=== PATIENT | male | born 1955 | race Caucasian/White ===

== ENCOUNTER 2016-09-08 09:59 | Emergency (ER) | payer BC ==
[~2016-09-08] VITALS: Ht 172.7 cm; Wt 79.0 kg
[2016-09-08 10:05] VITALS: Ht 172.7 cm; Wt 79.0 kg
[2016-09-08] MEDS ORDERED: ONDANSETRON 4 MG INJ IV STA (10:41)
[2016-09-08] MEDS ORDERED: HYDROmorphONE 1 MG/ML SYG IV STA (10:41)
[2016-09-08] MEDS ORDERED: SOD CHLORIDE 0.9% 1,000 ML IV STA (10:41)
[2016-09-08 11:03] LABS: ADD SCAN DIFF NO
[2016-09-08 11:12] LABS: BASOPHILS % 0.3 % (0.0-2.0); EOSINOPHILS # 0.1 10^3/ul (0.0-0.5); EOSINOPHILS % 1.3 % (0.0-7.0); HEMATOCRIT 42.8 % (42.0-52.0); HEMOGLOBIN 14.7 g/dl (14.0-18.0); LYMPHOCYTES # 1.5 10^3/ul (0.8-2.9); LYMPHOCYTES % 16.5 % (15.0-51.0); MEAN CORPUSCULAR HGB CONC 34.3 g/dl (32.0-37.0); MEAN CORPUSCULAR VOLUME 84.4 fl (82.0-101.0); MEAN PLATELET VOLUME 10.1 fl (7.4-10.4); MONOCYTE # 0.5 10^3/ul (0.3-0.9); MONOCYTES % 6.1 % (0.0-11.0); NEUTROPHIL # 6.7 10^3/ul (1.6-7.5); NEUTROPHILS % 75.4 % (39.0-77.0); PLATELET COUNT 250 10^3/UL (140-415); RED BLOOD COUNT 5.07 10^6/ul (4.70-6.10); RED CELL DISTRIBUTION WIDTH 13.2 % (11.5-14.5); WHITE BLOOD COUNT 8.9 10^3/ul (4.8-10.8)
[2016-09-08 11:13] LABS: ADD UMIC YES; UR ASCORBIC ACID NEGATIVE (NEGATIVE); UR BILIRUBIN (Dip) NEGATIVE (NEGATIVE); UR BLOOD (Dip) 3+ mg/dL (NEGATIVE); UR CLARITY SLIGHTLY CLOUDY (CLEAR); UR COLOR YELLOW (YELLOW); UR GLUCOSE (Dip) 3+ mg/dL (NEGATIVE); UR KETONES (Dip) NEGATIVE (NEGATIVE); UR LEUKOCYTE ESTERASE (Dip) NEGATIVE Leu/ul (NEGATIVE); UR MUCUS MODERATE /HPF (NONE SEEN); UR NITRITE (Dip) NEGATIVE (NEGATIVE); UR RBC 70 /HPF (0-5); UR SPECIFIC GRAVITY (Dip) 1.032 (1.003-1.030); UR TOTAL PROTEIN (Dip) NEGATIVE (NEGATIVE); UR UROBILINOGEN (Dip) NEGATIVE (NEGATIVE)
--- NOTE | 2016-09-08 11:29 | RADRPT ---
PROCEDURE: CT Abdomen and Pelvis without contrast. CLINICAL INDICATION: Abdominal pain TECHNIQUE: CT scan of the abdomen and pelvis without contrast was performed on a multidetector hig h-resolution CT scanner. The patient was scanned without intravenous contrast. Coronal and sagittal reformatted images were obtained from the axial source images. Images were reviewed on a high-resol [employer] PACS workstation. The total exam CTDI equals 11.93 mGy and the total exam DLP equals 728.33 mG y-cm. One or more of the following dose reduction techniques were used: Automated exposure control. Adjustment of the mA and/or kV according to patient size. Use of iterative reconstruction technique. COMPARISON: None FINDINGS: CT abdomen: The lung bases are remarkable for bibasilar atelectasis. The heart size is normal, without pericard ial thickening or effusion. There is hepatomegaly with fatty infiltration. The spleen is normal in size and homogeneous in dens ity. The stomach is partially collapsed, but is grossly unremarkable. The pancreas as visualized i s normal. The gallbladder is remarkable for multiple calcified gallstones. There is no evidence for biliary dilatation. The adrenal glands are symmetric and normal. There is mild left hydroureteronephrosis with surrounding mild perinephric fatty stranding related t o 3 mm obstructing stone in the distal left ureter. The aorta is of normal caliber. Aortic vascular calcifications are present. There is no retroperit guy lymphadenopathy. The shruti hepatis region is clear. There is diverticulosis of the descendin g and sigmoid colon without evidence of acute diverticulitis. Scattered diverticula are also seen i n the ascending colon. There is a mild hiatal hernia. CT pelvis: The small bowel loops situated within the pelvis are unremarkable. There is a small fat containing r ight inguinal hernia. There is a normal appendix. The pelvic organs are normal. The pelvic sidewall s and inguinal regions are clear. The sigmoid colon and rectum are remarkable for sigmoid diverticu losis. No mass, lymphadenopathy, or free fluid is seen. No acute inflammation is seen. The surrou nding osseous structures are remarkable for degenerative spondylosis of the spine. No osteolytic or osteoblastic lesion is detected. IMPRESSION: 1. Mild left hydroureteronephrosis with surrounding perinephric fatty stranding related to 3 mm obs tructing stone in the distal left ureter. 2. Diverticulosis of the left colon without evidence of acute diverticulitis. Scattered diverticul a in the ascending colon. 3. Cholelithiasis without evidence of acute cholecystitis. 4. Hepatomegaly with fatty infiltration. 5. Normal appendix. 6. Scattered aortoiliac atherosclerosis. RPTAT: BB .Ivonne Saha MD, Date Time Electronically viewed and signed by .Ivonne Saha MD, on 09/08/2016 11:29 .O/
[2016-09-08 11:30] LABS: INR 0.84; PROTIME 11.5 Sec (12.2-14.2); PT RATIO 0.9
[2016-09-08 11:31] LABS: PARTIAL THROMBOPLASTIN TIME 29.4 Sec (25.0-35.0)
[2016-09-08 11:35] LABS: ALBUMIN 5.3 g/dl (3.3-4.9); ALBUMIN/GLOBULIN RATIO 2.12; BILIRUBIN,INDIRECT 0.3 mg/dl (0-1.1); BILIRUBIN,TOTAL 0.3 mg/dl (0.2-1.3); CALCIUM 9.7 mg/dl (8.4-10.2); CREATININE 1.07 mg/dl (0.61-1.24); POTASSIUM 4.3 mmol/L (3.5-5.1); TOTAL PROTEIN 7.8 g/dl (6.1-8.1)
[2016-09-08] MEDS ORDERED: KETOROLAC 30 MG INJ IV STA (11:37)
[2016-09-08] MEDS ORDERED: morphine 4 MG/ML VIAL IV STA ×2 (11:37→12:30)
[2016-09-08] MEDS ORDERED: IBUP-1542 PO (12:06)
[2016-09-08] MEDS ORDERED: HYDR-902 PO (12:06)
[2016-09-08] MEDS ORDERED: TAMS-14 PO (12:06)
--- NOTE | 2016-09-08 12:30 | ERD ---
ER Documentation Chief Complaint Date/Time DATE: 09/08/16 TIME: 12:04 Chief Complaint L flank pain and LLQ pelvic pain since this AM. HPI 60-year-old male with a history of diabetes presenting with left-sided flank and left lower quadrant pain since this morning. His pain radiates from the flank to the left lower quadrant. It is a stabbing, aching pain. Increases intermittently with intensity. Rates pain at 10 out of 10. Never resolves. No associated fever, chills, dizziness, chest pain, hematuria, dysuria, focal weakness or numbness. No change in bladder or bowel habits. No history of kidney stones. ROS All systems reviewed and are negative except as per history of present illness. Allergies Allergies: Coded Allergies: No Known Allergy (Unverified , 09/08/16) PMhx/Soc Medical and Surgical Hx: pt denies Surgical Hx Hx Miscellaneous Medical Probl: Yes (DM, HYPERLIPIDEMIA) Hx Alcohol Use: No Hx Substance Use: No Hx Tobacco Use: No Smoking Status: Never smoker FmHx Family History: No diabetes Physical Exam Vitals Vital Signs Date Time Temp Pulse Resp B/P Pulse Ox O2 Delivery O2 Flow Rate FiO2 09/08/16 11:46 75 18 130/81 96 09/08/16 10:05 97.6 75 18 139/69 96 Physical Exam Const: Nontoxic, appears to be in distress Head: Atraumatic Eyes: Normal Conjunctiva ENT: Normal External Ears, Nose and Mouth. Neck: Full range of motion..~ No meningismus. Resp: Clear to auscultation bilaterally Cardio: Regular rate and rhythm, no murmurs Abd: Soft, non tender, non distended. Normal bowel sounds Skin: No petechiae or rashes Back: No midline tenderness, mild left CVA tenderness Ext: No cyanosis, or edema Neur: Awake and alert Psych: Normal Mood and Affect Result Diagram: 09/08/16 1040 09/08/16 1040 Results 24 hrs Laboratory Tests Test 09/08/16 10:23 09/08/16 10:40 Urine Color YELLOW Urine Clarity SLIGHTLY CLOUDY Urine pH 5.0 Urine Specific [place] 1.032 Urine Ketones NEGATIVEmg/dL Urine Nitrite NEGATIVEmg/dL Urine Bilirubin NEGATIVEmg/dL Urine Urobilinogen NEGATIVEmg/dL Urine Leukocyte Esterase NEGATIVELeu/ul Urine Microscopic RBC 70/HPF Urine Microscopic WBC 2/HPF Urine Mucus MODERATE/HPF Urine Hemoglobin 3+mg/dL Urine Glucose 3+mg/dL Urine Total Protein NEGATIVEmg/dl White Blood Count 8.910^3/ul Red Blood Count 5.0710^6/ul Hemoglobin 14.7g/dl Hematocrit 42.8% Mean Corpuscular Volume 84.4fl Mean Corpuscular Hemoglobin 29.0pg Mean Corpuscular Hemoglobin Concent 34.3g/dl Red Cell Distribution Width 13.2% Platelet Count 68696^3/UL Mean Platelet Volume 10.1fl Neutrophils % 75.4% Lymphocytes % 16.5% Monocytes % 6.1% Eosinophils % 1.3% Basophils % 0.3% Nucleated Red Blood Cells % 0.0/100WBC Neutrophils # 6.710^3/ul Lymphocytes # 1.510^3/ul Monocytes # 0.510^3/ul Eosinophils # 0.110^3/ul Basophils # 0.010^3/ul Nucleated Red Blood Cells # 0.010^3/ul Prothrombin Time 11.5Sec Prothrombin Time Ratio 0.9 INR International Normalized Ratio 0.84 Activated Partial Thromboplast Time 29.4Sec Sodium Level 135mmol/L Potassium Level 4.3mmol/L Chloride Level 99mmol/L Carbon Dioxide Level 27mmol/L Anion Gap 13 Blood Urea Nitrogen 15mg/dl Creatinine 1.07mg/dl Glucose Level 260mg/dl Calcium Level 9.7mg/dl Total Bilirubin 0.3mg/dl Direct Bilirubin 0.00mg/dl Indirect Bilirubin 0.3mg/dl Aspartate Amino Transf (AST/SGOT) 27IU/L Alanine Aminotransferase (ALT/SGPT) 56IU/L Alkaline Phosphatase 79IU/L Total Protein 7.8g/dl Albumin 5.3g/dl Globulin 2.50g/dl Albumin/Globulin Ratio 2.12 Lipase 357U/L Current Medications Medications (Trade) Dose Ordered Sig/Angeline Route PRN Reason Start Time Stop Time Status Last Admin Dose Admin Sodium Chloride (NS) 1,000 ml @ 1,000 mls/hr Q1H STAT IV 09/08/16 10:41 09/08/16 11:40 DC 09/08/16 10:50 Hydromorphone HCl (Dilaudid) 1 mg ONCE STAT IV 09/08/16 10:41 09/08/16 10:43 DC 09/08/16 10:50 Ondansetron HCl (Zofran Inj) 4 mg ONCE STAT IV 09/08/16 10:41 09/08/16 10:43 DC 09/08/16 10:49 Ketorolac Tromethamine (Toradol) 30 mg ONCE STAT IV 09/08/16 11:37 09/08/16 11:39 DC 09/08/16 11:42 Morphine Sulfate (morphine) 4 mg ONCE STAT IV 09/08/16 11:37 09/08/16 11:39 DC 09/08/16 11:42 Procedures/MDM Labs CBC: no anemia or evidence of infection CMP: +hyperglycemia. No evidence of electrolyte abnormality, renal failure, liver failure, or biliary obstruction Lipase: Mildly elevated UA: Positive blood, no evidence of infection EKG: Rate/Rhythm: Normal Sinus Rhythm QRS, ST, T-waves: No changes consistent w/ acute ischemia Impression: No evidence of ischemia or arrhythmia CT abdomen and pelvis: Left-sided distal ureter stone, 3 mm, with mild hydroureteronephrosis. No other acute abnormalities MDM Patient is presenting with flank pain. Diagnoses considered are AAA, renal artery or vein thromoembolism, aortic dissection, pyelonephritis, retroperitoneal hemorrhage, ureterolithiasis, colitis, as well as spinal emergencies, among others. Pain was treated with multiple doses of Dilaudid, morphine, and Toradol. Upon reevaluation his symptoms have improved. The patients exam and workup are most consistent with an obstructing left-sided kidney stone. There is no evidence of pyelonephritis. Based on the size and location of the kidney stone, he is most likely to pass this. Plan is to discharge home with PCP follow-up in 1-[address] was provided to him. He was told to get a referral to urology. Return precautions were discussed. He was discharged home with a prescription for Flomax, ibuprofen, and [place] Departure Diagnosis: Primary Impression: Kidney stone on left side Condition: Stable EKLILY VAZQUEZ MD Sep 08, 2016 12:30
[2016-09-08 12:40] VITALS: BP 122/66; PULSE 78; RESP 20
== END 2016-09-08 12:42 | disposition home or self-care (01) ==
LOC: E/R 09:59
DX: N20.0 Calculus of kidney (principal); E11.9 Type 2 diabetes mellitus without complications
CPT/HCPCS: 36415; 74176; 80053; 81001; 83690; 85025; 85610; 85730; 87086; 93005; 96374; 96375; 96376; 99285; J1170; J1885; J2270; J2405; J7030